=== PATIENT | male | born 1935 | race Caucasian/White ===

== ENCOUNTER → 2017-01-05 | Outpatient (CLI) | payer MEDICARE, BC ==
[~2017-01-05] MED LIST: ASPIRIN 81MG TA81 MG PO; AUGMENTIN XR 101 TER PO; CRESTOR5 MG PO; FISH OIL500 MG PO; FLOMAX0.4 MG PO; FLORANEX PO; ISOSORBIDE30 MG PO; LASIX 80MG. TAB80 MG PO; LORTAB 5/500 501 TAB PO; MELADOX NATURAL3 MG PO; NITROSTAT0.4 MG SL; PREVACID 30MG C30 M1 PO; RAMIPRIL2.5 M1 PO; SERTRALINE50 M1 PO; STOOL SOFTENER1 TAB PO; TOPROL XL 25MG25 MG PO; TRICOR 145 MG145 MG PO; VANCOMYCIN HYD PO
--- NOTE | 2017-01-06 08:54 | RADIOLOGY REPORT PS360 ---
CT ABD PELVIS W/ CONTRAST HISTORY: TENDER EPIGASTRIC INCISIONAL HERNIA Patient Age: 81 years: Male Ordering Physician: Obi Gilman MD TECHNIQUE: Helical CT scanning performed through the abdomen and pelvis following 75 cc [id number]. Delayed CT abdomen pelvis included COMPARISON :Previous CT abdomen/pelvis September 2007 FINDINGS TRACT Right Kidney:. Huge cyst has progressed Very large bilobed renal cyst along medial aspect of right kidney. Has progressed & enlarged since previous study 2007. Fluid density with thin-walled thus compatible with a benign cyst. It measures up to nearly 16 cm AP x up to 12 cm transverse x 14 cm height. . It compressing and displacing the right renal pelvis posteriorly with resulting caliectasis throughout the right kidney most evident at the upper pole.The right ureter otherwise is unremarkable Left Kidney contains only a small 11 mm cyst along its posterior aspect. Pelvis question mild diffuse wall thickening of bladder towards correlation with urinalysis. Modest size prostate is slightly indents the base of the bladder. . GI TRACT.:. Diffuse Colonic diverticulosis most extensive in sigmoid colon and left colon. No diverticulitis . Small bowel unremarkable.Note small hiatal hernia. Abdominal Wall: Small fat-containing ventral hernia superior epigastric region to the right of midline (axial image 90). Resides anterior to left lobe liver.. It contains fat/omental fat only. Can be seen sweeping upward from below on the sagittal views 49, 50.. The abdominal wall defect measuring 17 mm mm transverse X 11 mm height., With Small fat-containing Hernia sac measures up to 2 cm.. There is Minor stranding about this region. There are some surgical clips just along the abdominal wall in this region. Possible previous incisional hernia?. Slight hazy appearance just below the hernia defect also noted sweeping inferiorly, as seen here along the left aspect of of falciform ligament as seen on axial image 27. & sagittal image 49, 50. Requires correlation.. Could reflect some mild inflammation and fat related to the this small hernia versus post cholecystectomy changes No significant appearing umbilical hernia is evident. I suspect there is been a previous umbilical hernia repair accounts for the mild stranding about this region and just inside the umbilical hernia area- similar to the previous 2007 study. No protrusion the abdominal wall nor significant appearing additional inflammation in this area.. Patient appears to have gained weight in the interval with slight additional subcutaneous fat particularly about the lower abdominal region towards pelvis. There is some laxity at the left inguinal ring with very slight bulging of fat fat into this region. Could reflect a minor developing fat containing left inguinal hernia but appears basically similar to the 2008 exam. No bowel loops here -- The lung bases appear clear with no active disease. Cardiomegaly. Hiatal hernia. Liver appears satisfactory with no focal lesions. No biliary ductal dilatation. Gallbladder surgically removed. Pancreas unremarkable. Spleen, and adrenals appear stable and satisfactory. No retroperitoneal adenopathy. Diffuse calcification aorta and iliacs. No aneurysmal dilatation. Degenerative disc changes spine most evident at L3/4 L4/5 with prominent facet hypertrophy and left lower L-spine. Probable pars defects at L5 but no listhesis. No osseous lesions IMPRESSION....... 1. Small fat-containing ventral hernia superior epigastric region, overlying left lobe of liver.. Axial image 19 . Subtle hazy appearance just inferior to this hernia & along the left aspect falciform ligament in this area. May reflects minor inflammation related to this small hernia (as seen on sagittal image 49/50) 2. No significant umbilical hernia. Question/suspect a previous umbilical hernia repair accounting for slight stranding about this area. Correlation required 3. Left inguinal ring with perhaps slight laxity but no significant hernia/&Similar appearance versus 2008 4. Diffuse Colonic diverticulosis most extensive in sigmoid colon and left colon. No diverticulitis 5.. Progression of now very large right renal cyst., Which now yield partial obstruction with caliectasis right kidney. May benefit from urology consult. This large Cyst 16 cm maximum AP dimension compresses and posteriorly displaces the right renal pelvis. . 6. Cardiomegaly 7. Small hiatal hernia
== END ==
LOC: RAD 09:27
DX: K43.2 Incisional hernia without obstruction or gangrene (principal)
CPT/HCPCS: Q9967

== ENCOUNTER → 2017-01-23 | Outpatient (CLI) | payer MEDICARE, BC ==
--- NOTE | 2017-01-24 06:06 | RADIOLOGY REPORT PS360 ---
PROCEDURE: 2-D M-mode and color Doppler study INDICATIONS FOR THE TEST: Chest pain COPD Heart Murmur Tobacco Smoking Palpitations Fatigue Syncope Edema Hypertension Diabetes Mellitus Rheumatic Fever SOB+SWENSON Obesity Hyperlipidemia+ Family History HD Additional History PATIENT INFORMATION HEIGHT: 66 WEIGHT:192 GENDER: Male B/P:112/54 2-D/M-MODE INTERPRETATION: 2-D MEASUREMENTS OBSERVED VALUES IN CMS Right Ventricular Dimension (RVDd) 2.8 Interventricular Septum (Thickness)(IVsd) 1.4 Left Ventricular Internal Dimensions(LVIDd) 5.7 Left Ventricular Posterior Wall (Thickness)(LVPWd) 1.1 Aortic Root 3.5 Aortic Cusp Separation 1.9 Left Atrial Dimensions (LAD) 4.0 2D 1. Left atrium is qualitatively moderately enlarged, left ventricle is mildly dilated, there is severely reduced left ventricular systolic function, visually estimated ejection fraction approximately 20-25%, left ventricle is globally hypokinetic, superimposed segmental wall motion abnormalities cannot be entirely excluded, there is abnormal septal motion. 2. The right atrium and right ventricle are mildly enlarged, there is a catheter noted in the right atrium and right ventricle which is likely a pacemaker lead. 3. The aortic valve is thickened and calcified, leaflet continue to display mobility. 4. The mitral and tricuspid valve has mild degenerative changes and thickening. 5. The pulmonic valve is poorly visualized. 6. No significant pericardial effusion noted. DOPPLER INTERROGATION: Doppler interrogation of the aortic, mitral and tricuspid valvular presence of mild aortic, moderate mitral and moderate tricuspid regurgitation, calculated right ventricular systolic pressure is 52 mmHg consistent with moderate pulmonary hypertension. Diastolic parameters are inconclusive. CONCLUSION: 1. Biatrial enlargement, dilated left ventricle, severely reduced left ventricular systolic function visually estimated ejection fraction is 20- 25% as described above. Diastolic parameters are inconclusive. 2. Mild aortic, moderate mitral and tricuspid regurgitation, calculated right ventricular systolic pressure 52 mmHg consistent with moderate pulmonary hypertension. 3. No significant pericardial effusion.
== END ==
LOC: RT 14:05
DX: I25.10 Atherosclerotic heart disease of native coronary artery without angina pectoris (principal); E78.5 Hyperlipidemia, unspecified; R06.00 Dyspnea, unspecified; I50.30 Unspecified diastolic (congestive) heart failure; Z95.810 Presence of automatic (implantable) cardiac defibrillator; I50.21 Acute systolic (congestive) heart failure; R94.31 Abnormal electrocardiogram [ECG] [EKG]; Z01.818 Encounter for other preprocedural examination

== ENCOUNTER → 2017-03-26 | Outpatient (CLI) | payer MEDICARE, BC ==
[2017-03-26 15:40] LABS: AEROMONAS NOT DETECTED (NOT DETECTE)
[2017-03-26 15:41] LABS: ASTROVIRUS NOT DETECTED (NOT DETECTE); CYCLOSPORA CAYETANENSIS NOT DETECTED (NOT DETECTE); E COLI O157 NOT DETECTED (NOT DETECTE); ENTEROPATHOGENIC E COLI NOT DETECTED (NOT DETECTE); ENTEROTOXIGENIC E COLI NOT DETECTED (NOT DETECTE); NOROVIRUS NOT DETECTED (NOT DETECTE); SAPOVIRUS NOT DETECTED (NOT DETECTE); SHIGA-LIKE TOXIN PROD. E COLI NOT DETECTED (NOT DETECTE); SHIGELLA/ENTEROINVASIVE E COLI NOT DETECTED (NOT DETECTE); VIBRIO CHOLERAE NOT DETECTED (NOT DETECTE)
[2017-03-26 18:29] LABS: ENTEROAGGREGATIVE E COLI DETECTED (NOT DETECTE)
== END ==
LOC: LAB 15:40
PROVIDERS: Internal Medicine
DX: K52.1 Toxic gastroenteritis and colitis (principal); R19.7 Diarrhea, unspecified